=== PATIENT | female | born 1985 | race Caucasian/White ===

== ENCOUNTER 2018-12-17 16:02 | Emergency (ER) | payer OTHER ==
[~2018-12-17] VITALS: Ht 175.3 cm; Wt 65.8 kg
[2018-12-17] MEDS ORDERED: ASPIR 8181 MG (17:07)
== END 2018-12-17 18:23 | disposition home or self-care (01) ==
LOC: ER 16:02
DX: K58.8 Other irritable bowel syndrome (principal)